=== PATIENT | male | born 1985 | race African-American/Black ===

== ENCOUNTER 2023-10-01 09:32 | Inpatient (IN) | payer OTHER ==
[~2023-10-01] VITALS: Ht 180.3 cm; Wt 77.1 kg
[2023-10-01 10:38] LABS: HEMATOCRIT 42.8 % (39.0-48.0); HEMOGLOBIN 15.3 g/dL (13-16.00); MEAN CELL VOLUME 96.8 fL (80.0-100.00); MEAN CORPUSCULAR HEMOGLOBIN 34.5 pg (27.00-32.0); MEAN CORPUSCULAR HGB CONC 35.7 g/dl (32.0-36.0); PLATELET COUNT 180 K/uL (150-450); RED BLOOD COUNT 4.42 M/uL (4.00-6.00)
[2023-10-01 11:09] LABS: ALBUMIN 3.2 gm/dL (3.4-5.0); BILIRUBIN TOTAL 1.65 mg/dL (0.3-1.2); CALCIUM 9.6 mg/dL (8.5-10.1); CREATININE SERUM 0.66 mg/dL (0.70-1.30); GFR 135.08; GLOBULINA 4.3 G/DL (2.4-3.5); POTASSIUM 4.34 mEq/L (3.5-5.1); TOTAL PROTEIN 7.5 gm/dL (6.4-8.2)
[2023-10-01 11:43] LABS: URINE APPEARANCE Clear; URINE BILIRRUBIN Negative (NEGATIVE); URINE BLOOD Negative; URINE COLOR Yellow; URINE GLUCOSE Negative (NEGATIVE); URINE LEUKOCYTE Negative; URINE NITRATE Negative; URINE PROTEIN Negative (NEGATIVE)
[2023-10-01 11:45] LABS: URINE EPITHELIAL CELLS 1.8 uL (0.0-38.8)
[2023-10-01 11:56] LABS: URINE BACTERIA 2.5 uL (0.0-1933)
[2023-10-01 15:13] LABS: AMYLASE 63 U/L (25-115)
[2023-10-01 15:28] LABS: LIPASE 148 U/L (13-75)
[2023-10-02 04:23] LABS: HEMATOCRIT 42.6 % (39.0-48.0); HEMOGLOBIN 14.7 g/dL (13-16.00); MEAN CELL VOLUME 97.9 fL (80.0-100.00); MEAN CORPUSCULAR HEMOGLOBIN 33.7 pg (27.00-32.0); MEAN CORPUSCULAR HGB CONC 34.4 g/dl (32.0-36.0); PLATELET COUNT 184 K/uL (150-450); RED BLOOD COUNT 4.35 M/uL (4.00-6.00); RED CELL DISTRIBUTION WIDTH 14.5 % (11.5-14.5)
[2023-10-02 04:35] LABS: INR 0.99; PARTIAL THROMBOPLASTIN TIME 27.8 SECONDS (22.0-34.0); PROTHROMBIN TIME 10.4 SECONDS (9.0-11.5)
[2023-10-02 04:40] LABS: ALBUMIN 3.3 gm/dL (3.4-5.0); BILIRUBIN TOTAL 1.17 mg/dL (0.3-1.2); CALCIUM 9.6 mg/dL (8.5-10.1); CHOL HDL RATIO 2.4 (0-5.0); CREATININE SERUM 0.63 mg/dL (0.70-1.30); GFR 142.53; GLOBULINA 3.8 G/DL (2.4-3.5); POTASSIUM 4.37 mEq/L (3.5-5.1); TOTAL PROTEIN 7.1 gm/dL (6.4-8.2)
[2023-10-02 07:58] LABS: HEMATOCRIT 42.3 % (39.0-48.0); HEMOGLOBIN 14.9 g/dL (13-16.00); MEAN CELL VOLUME 97.9 fL (80.0-100.00); MEAN CORPUSCULAR HEMOGLOBIN 34.4 pg (27.00-32.0); MEAN CORPUSCULAR HGB CONC 35.1 g/dl (32.0-36.0); PLATELET COUNT 188 K/uL (150-450); RED BLOOD COUNT 4.32 M/uL (4.00-6.00); RED CELL DISTRIBUTION WIDTH 14.3 % (11.5-14.5)
[2023-10-02 08:15] LABS: CALCIUM 9.2 mg/dL (8.5-10.1); CREATININE SERUM 0.51 mg/dL (0.70-1.30); GFR 181.89; POTASSIUM 3.69 mEq/L (3.5-5.1)
[2023-10-02 19:46] LABS: URINE APPEARANCE Clear; URINE BILIRRUBIN Negative (NEGATIVE); URINE BLOOD Negative; URINE COLOR Yellow; URINE GLUCOSE Negative (NEGATIVE); URINE LEUKOCYTE Negative; URINE NITRATE Negative; URINE PROTEIN Negative (NEGATIVE)
[2023-10-02 19:50] LABS: URINE BACTERIA 6.2 uL (0.0-1933); URINE EPITHELIAL CELLS 1.8 uL (0.0-38.8); URINE RBC 16.8 uL (0.0-20.8); URINE WBC 5.3 uL (0.0-23.2)
[2023-10-04 07:06] LABS: AMYLASE 126 U/L (25-115)
[2023-10-04 07:13] LABS: LIPASE 473 U/L (13-75)
== END 2023-10-04 17:56 | disposition home or self-care (01) | DRG 439 ==
LOC: ER 09:32 → MEDJ 23:24
PROVIDERS: Emergency Medicine; General Practice; ADMIT Specialist; ATTEND Specialist
PROC: BW21YZZ Computerized Tomography (CT Scan) of Abdomen and Pelvis using Other Contrast (ICD-10-PCS; principal; 2023-10-01)
PROC: BF37ZZZ Magnetic Resonance Imaging (MRI) of Pancreas (ICD-10-PCS; 2023-10-01)
DX: K85.80 Other acute pancreatitis without necrosis or infection (principal); K86.2 Cyst of pancreas; E86.0 Dehydration